=== PATIENT | female | born 1990 | race Caucasian/White ===

== ENCOUNTER → 2021-11-13 00:41 | Outpatient (CLI) | payer MEDICARE, MEDICAID, SELFPAY ==
--- NOTE | 2021-11-13 12:15 | DI.MRI_ITS ---
Exam(s) MR BRAIN WO/W EXAM: MR BRAIN WO/W CLINICAL HISTORY: SYNCOPE, R55. TECHNIQUE: Multiplanar multisequence MRI of the brain was performed. CONTRAST MATERIAL: IV Contrast: 14 ML of Dotarem contrast administered. COMPARISON: No exams were available for comparison FINDINGS: VENTRICLES AND EXTRA AXIAL SPACES: Normal in size and morphology for the patient's age. HEMORRHAGE: None. CEREBRAL PARENCHYMA: No focus of restricted diffusion to suggest acute infarct. No space-occupying le tari identified. No abnormal high signal lesions in the white matter. MIDLINE SHIFT: None. BRAINSTEM/CEREBELLUM: Normal. ENHANCEMENT: No suspicious enhancement identified. VISUALIZED PARANASAL SINUSES/MASTOIDS: Clear. OTHER FINDINGS: Orbits unremarkable. Pituitary grossly normal. Vascular flow voids are intact. IMPRESSION: Normal MRI of the brain. DATA REPOSITORY:
[2021-11-13 12:32] LABS: CREATININE 0.8 mg/dL (0.55-1.02)
[2021-11-13] MEDS: Normal Saline Flush 10 ML SYR IVP (12:59)
== END ==
PROVIDERS: Visit Provider Internal Medicine
DX: R55 Syncope and collapse (principal); Z01.812 Encounter for preprocedural laboratory examination
CPT/HCPCS: 70553; 82565